=== PATIENT | female | born 1945 | race Caucasian/White ===

== ENCOUNTER 2021-07-24 16:49 | Inpatient (IN) | payer OTHER ==
[~2021-07-24] VITALS: Ht 165.1 cm; Wt 119.0 kg
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
[~2021-07-24 16:49] MED LIST: ALLOPURINOL 30300 M1 PO; B12INJ IM; BIOTIN1 MG PO; BIOTIN300 MCG PO; DEMADEX20 MG PO; K-DUR 20 MEQ T20 MEQ PO; MOBIC15 MG PO; TRAMADOL 50 MG50 MG PO; TUMS PO; VALACYCLOVIR1000 MG PO; VITAMIN D1000 UNI1 PO; ZOSYN 3.3753.375 GM IV
[2021-07-24 16:50] VITALS: BP 195/76
[2021-07-24 17:25] LABS: ABSOLUTE EOSINOPHILS 0.3 thou/uL (0.0-0.7); ABSOLUTE LYMPHOCYTES 1.2 thou/uL (0.8-5.3); ABSOLUTE MONOCYTES 0.7 thou/uL (0.0-1.2); ABSOLUTE NEUTROPHILS 5.6 thou/uL (1.6-8.1); BASOPHILS 0.2 %; EOSINOPHILS 3.2 %; HEMATOCRIT 35.1 % (37.0-47.0); HEMOGLOBIN 11.2 gm/dL (12.0-15.0); LYMPHOCYTES 15.8 %; MCH 27.2 pg (26.0-34.0); MCHC 32.1 g/dL (28.0-37.0); MCV 84.8 fL (80.0-100.0); MPV 7.4 fl. (7.2-11.1); NUCLEATED RBCS 0 /100WBC; PLATELET COUNT* 246 thou/uL (150-400); POLYS 71.8 %; RBC 4.14 mil/uL (4.20-5.00); RDW-CV 15.5 % (10.5-14.5); WBC 7.8 thou/uL (4.0-11.0)
[2021-07-24 17:42] LABS: CALCIUM 8.3 mg/dL (8.5-10.1); CREATININE 1.9 mg/dL (0.6-1.3); POTASSIUM 4.1 mmol/L (3.5-5.1)
[2021-07-24 17:46] LABS: ALBUMIN 2.6 g/dL (3.4-5.0); TOTAL BILIRUBIN 0.4 mg/dL (<0.1-1.0); TOTAL PROTEIN 7.2 g/dL (6.4-8.2)
[2021-07-24 18:45] LABS: URINE BILIRUBIN NEGATIVE (Negative); URINE BLOOD 3+ (Negative); URINE CLARITY CLEAR; URINE COLOR YELLOW; URINE GLUCOSE-RANDOM NEGATIVE (Negative); URINE KETONES NEGATIVE (Negative); URINE LEUKOCYTES 1+ (Negative); URINE NITRITE NEGATIVE (Negative); URINE PROTEIN NEGATIVE (Negative); URINE UROBILINOGEN 0.2 E.U./dl (0.2-1.0)
[2021-07-24 18:59] LABS: HYALINE CASTS 0-3 Few /LPF (None Seen); MUCUS None Seen strn/LPF (None Seen); SQUAMOUS >10 Many /LPF (0-3)
[2021-07-24 19:00] LABS: BACTERIA 1-9 Few /HPF (None Seen); CRYSTALS None Seen /LPF (None Seen); URINE RBC 3-10 Few /HPF (0-2); WBC CLUMPS Few (None Seen)
[2021-07-24 21:51] VITALS: BP 168/71
[2021-07-24 22:43] VITALS: BP 125/68
[2021-07-25 04:00] VITALS: BP 135/58
--- NOTE | 2021-07-25 05:41 | NUR ---
ASSUMED CARE OF PT AT APPROX 2215. PT A&OX3 (NOT TIME), VSS ON ROOM AIR, UP WITH ASSIST TO BSC. IV FLUIDS INFUSING ORDERED. PT SLEEPING WELL. WOUND CONSULT ORDERED FOR BLE WOUNDS.
[2021-07-25 08:00] VITALS: BP 153/78
--- NOTE | 2021-07-25 09:37 | NUR ---
CM ASSESSMENT: PT A&O, INDEPENDENT WITH ADL'S, AND ACTIVE. PT RESIDES AT HOME ALONE, BUT INFOMRS THAT HER GRANDDAUGHTER AND GRANDSON ARE SUPPORTIVE AND ASSIST WITH TRANSPORATION AND OTHER THINGS NEEDED. PT USES A CANE FOR MOBILITY. PT HAS PAST HX OF HH 'MANY YEARS AGO'. PT HAS 0 HX OF SNF. CM WILL REMAIN AVAILABLE TO ASSIST AND FOLLOW NEEDED.
--- NOTE | 2021-07-25 11:08 | EKG ---
[place] [address] ELECTROCARDIOGRAM REPORT Name: SHAY HOWARD Room: [address] ADM IN .R.#: [id number] Admission: 07/24/21 Attend Phys: Alfonso Ocasio Discharge: Date of : 41 Date of Service: 07/24/21 1654 Report #: [id number] THIS REPORT FOR: //name// [facility] ED Test Date: 2021-07-24 Test Time: 16:54:43 Pat Name: SHAY HOWARD Department: Room: [facility] Gender: F Fnp: GIANA : 1945 Requested By: Karthik Rodríguez Order Number: [id number] MD: Selvin Arceo Measurements Intervals [place] Rate: 56 P: 15 ME: 226 QRS: -12 QRSD: 94 T: -2 QT: 469 QTc: 453 Interpretive Statements Sinus rhythm Prolonged ME interval LVH by voltage Inferior infarct, old No previous ECG available for comparison Electronically Signed On 07-25-2021 11:08:32 CDT by Selvin Arceo [email or web address] <ELECTRONICALLY SIGNED> By: Selvin Arceo MD, FACC 07/25/21 1108 1654 1654 Selvin Arceo MD, FAC /EPI
--- NOTE | 2021-07-25 12:24 | NUR ---
Nutrition: Pt admitted with weakness. She said she couldn't get herself at home and had to use [employer]. I saw her today for high BMI. Wt: 262#. Albumin 2.6. She stated she "accepted the fact that I'm fat, and I deserve my goodies b/c I'm old." Not interested in nutrition educ. I did give her a menu. Regular diet. She said her appetite is good. We discussed the importance of keeping her strength up, chair exercises to maintain LBM - pt in agreement to this at home. Consider mild risk.
--- NOTE | 2021-07-25 14:24 | NUR ---
WOUND NURSE: PATIENT SEEN TO ADDRESS VENOUS STASIS ULCERS ON BLE. PATIENT ALSO HAS LYMPHEDEMA AND REPORTS SHE HAS PUMPS AT HOME BUT DOES NOT USE THEM ANYMORE. LLE WOUND MEASURES 7.0 X 18.5 X 0.1 CM AND WAS MEASURED A CLUSTER. PRESENTS WITH RED, NONGRANULATING TISSUE, WOUND BED IS MOIST. GIRTH MEASUREMENTS ARE FOREFOOT: 26.5, ANKLE: 32.0, CALF: 51.0 CM. LEGS ARE WARM TO TOUCH AND CONTAINS HEMOSIDERIN STAINING. THERE 3+ PITTING EDEMA BLE. RIGHT LOWER EXTREMITY MEASURES 4.5 X 10.5 X 0.1 CM. AN INFERIOR WOUND MEASURES 1.0 X 1.5 0.1 CM. BOTH LEGS PRESENT IN REYNA SAME FASHION. GIRTH MEASUREMENTS ON THE RIGHT ARE FOREFOOT: 26.0, ANKLE: 32.0, CALF: 51.0. OBTAINED QUANTAFLO MAIKOL PRIOR TO APPLICATION OF COMPRESSION: RIGHT: 1.15; LEFT: 1.12. PATIENT INSTRUCTED ON MEASURES TO PROMOTE HEALING AND PREVENT COMPLICATING FACTORS. PATIENT STATES SHE UNDERSTANDS.
--- NOTE | 2021-07-25 14:48 | NUR ---
PATIENT TO HAVE VENOUS DOPPLER, WILL REMOVE WRAPS AND REAPPLY AFTER TEST.
--- NOTE | 2021-07-25 16:53 | NUR ---
WOUND NURSE: REPLACED 4 LAYER COMPRESSION WRAPS, PATIENT PROVIDED APPT WITH [facility] NEXT WEDNESDAY HERE AT [facility], APPT CARD GIVEN TO HER.
--- NOTE | 2021-07-25 17:10 | NUR ---
PATIENT RESTING IN BED WATCHING TV. VENOUS STASIS WOUNDS TO LOWER EXTREMITIES UNABLE TO ASSESS DUE TO DRESSINGS. DRESSING C/D/I. HEALING SCABS TO ABDOMEN AND LEFT BUTTOCK. IV TO RIGHT FOREARM SALINE LOCKED, PATENT. NO COMPLAINTS PAIN/DISCOMFORT. BED IN LOW/LOCKED POSITION. BED ALARM ON. CALL LIGHT WITHIN REACH. ALL QUESTIONS AND CONCERNS ADDRESSED.
[2021-07-25 17:59] VITALS: BP 171/83
[2021-07-25 20:00] VITALS: BP 186/84
[2021-07-26] VITALS: BP 142/49
[2021-07-26 04:55] LABS: HEMATOCRIT 32.8 % (37.0-47.0); HEMOGLOBIN 10.4 gm/dL (12.0-15.0); MCHC 31.7 g/dL (28.0-37.0); MCV 85.1 fL (80.0-100.0); MPV 7.7 fl. (7.2-11.1); RBC 3.85 mil/uL (4.20-5.00); RDW-CV 15.1 % (10.5-14.5); WBC 6.9 thou/uL (4.0-11.0)
--- NOTE | 2021-07-26 05:00 | NUR ---
ASSUMED PT CARE AT 1930. PT ALERT AND ORIENTED X4, POLITE AND COOPERATIVE WITH CARES. BED BATH GIVEN, SHAMPOO CAP APPLIED. TRAMADOL X1 PER PT REQUEST. DRESSINGS TO BLE C/D/I. PT INCONTINENT OF URINE X2. CALL LIGHT IN REACH, BED ALARM ON FOR SAFETY. HOURLY ROUNDING IN PROGRESS, WILL CONTINUE TO MONITOR.
[2021-07-26 05:07] LABS: ALBUMIN 2.1 g/dL (3.4-5.0); CALCIUM 8.2 mg/dL (8.5-10.1); CREATININE 1.9 mg/dL (0.6-1.3); MAGNESIUM 2.2 mg/dL (1.8-2.4); POTASSIUM 4.3 mmol/L (3.5-5.1); TOTAL BILIRUBIN 0.4 mg/dL (<0.1-1.0); TOTAL PROTEIN 6.7 g/dL (6.4-8.2)
[2021-07-26 08:00] VITALS: BP 167/83
[2021-07-26 17:25] VITALS: BP 139/65
[2021-07-26 19:55] VITALS: BP 178/70
[2021-07-27 00:31] VITALS: BP 160/76
[2021-07-27 04:15] VITALS: BP 163/71
--- NOTE | 2021-07-27 04:29 | NUR ---
PT DRESSING ON BLE C/D/I. RECEIVED ALL MEDS SCHEDULED. USING BSC WITH ASSISTANCE. DID NOT REPORT ANY PAIN OR NAUSEA THIS SHIFT. SHE WAS SLEEPING WELL ALL SHIFT WITHOUT ANY DECLINE IN FUNCTION. WILL CONTINUE TO MONITOR.
[2021-07-27 06:11] LABS: HEMATOCRIT 31.7 % (37.0-47.0); MCHC 31.7 g/dL (28.0-37.0); MCV 85.1 fL (80.0-100.0); MPV 7.7 fl. (7.2-11.1); RBC 3.73 mil/uL (4.20-5.00); RDW-CV 15.8 % (10.5-14.5); WBC 7.5 thou/uL (4.0-11.0)
[2021-07-27 06:31] LABS: CALCIUM 8.1 mg/dL (8.5-10.1); CREATININE 1.8 mg/dL (0.6-1.3); MAGNESIUM 2.1 mg/dL (1.8-2.4); POTASSIUM 4.1 mmol/L (3.5-5.1); TOTAL BILIRUBIN 0.4 mg/dL (<0.1-1.0); TOTAL PROTEIN 6.7 g/dL (6.4-8.2)
[2021-07-27 08:32] VITALS: BP 178/84
[2021-07-27 16:02] VITALS: BP 133/56
--- NOTE | 2021-07-27 17:48 | NUR ---
PATIENT RESTING IN BED. VENOUS STASIS TO LOWER EXTREMITIES. GOOD CAP REFILL TO LOWER EXTREMITIES. WOUNDS TO LOWER EXTREMITIES, UNABLE TO ASSESS DUE TO DRESSINGS. DRESSINGS C/D/I. IV TO RIGHT WRIST, SALINE LOCKED, PATENT. BED IN LOW/LOCKED POSITION. BED ALARM ON. CALL LIGTH WITHIN REACH. NO QUESTIONS OR CONCERNS VOICED.
[2021-07-27 21:19] VITALS: BP 166/80
[2021-07-28 08:00] VITALS: BP 153/72
--- NOTE | 2021-07-28 14:06 | NUR ---
WOUND NURSE: PATIENT SEEN TODAY FOR FOLLOW UP ASSESSMENT AND DRESSING CHANGE TO BLE. WOUNDS ARE BOTH SHALLOW AND WITH BEEFY RED TISSUE IN EACH WOUND BED. LEFT MEASURES 6.5 X 11.0 X 0.2 CM. THERE IS A MODERATE AMOUNT OF SEROUSANGUINOUS DRAINAGE ON THE OLD DRESSING. RIGHT MEASURES 5.0 X 9.0 X 0.2 CM. THIS WOUND ALSO HAS A MODERATE AMOUNT OF SEROUSANGUINOUS DRAINAGE. SKIN IS WRINKLES DUE TO THE DECREASE IN SWELLING. GIRTH MEASUREMENTS WERE TAKEN AND ARE FOLLOWS: LEFT/RIGHT RESPECTIVELY: FOREFOOT: 23.5 / 23.5; ANKLE: 27 / 26; CALF: 43.5 / 43 CM. BLE REMAIN PIGMENTED WITH HEMOSIDERIN STAINING. CLEANSED WITH SOAP AND WATER, RINSED, THEN PATTED DRY. APPLIED LOTION TO INTACT SKINI TOES TO KNEE. APPLIED XEROFORM GAUZE UNDER ABD'S, THEN WRAPPED WITH MEDLINE 4 LAYER COMPRESSION WRAP TOES TO KNEE. THIS WAS TOLERATED WELL BY THE PATIENT. REINSTRUCTED ON IMPORTANCE OF COMPRESSION TO CONTROL EDEMA AND TO PREVENT WOUNDING. SHE STATES SHE UNDERSTANDS. SHE ALSO HAS APPT IN [facility] LATER THIS WEEK IF SHE IS DISCHARED.
--- NOTE | 2021-07-28 15:05 | NUR ---
Case and plan of care reviewed with physician each weekday during patient's length of stay. Continue plan of care per physician orders. Continues on IV Rocephin and Doxy. UTI Bacterial /BLE chronic venous status ulcers, PT/OT eval and treat ordered. CM following for discharge planning needs, Anticipating ARU need
[2021-07-28 16:00] VITALS: BP 153/69
[2021-07-28 20:00] VITALS: BP 156/78
--- NOTE | 2021-07-29 04:30 | NUR ---
PATIENT SLEPT WELL DURING THIS SHIFT. PT ASSISTED WITH TURNS Q2H PER PROTOCAL. PT WITH SALINE LOCK IN RT FOREARM. PT DENIES PAIN/NAUSEA; PT ON ROOM AIR. PT INCONTINENT OF URINE FIRST HALF OF THE NIGHT. PUREWICK PUT IN PLACE. PT WITH COMPRESSION WRAPS ON LOWER EXTREMITIES. FREQUENTLY USED ITEMS AND CALL LIGHT WITHIN REACH. SIDERAILS UP X2 AND BED ALARM ON. WILL CONTINUE TO MONITOR.
[2021-07-29 08:05] VITALS: BP 166/59
[2021-07-29 15:33] VITALS: BP 11/64
--- NOTE | 2021-07-29 17:13 | NUR ---
PATIENT RESTING IN BED. PATIENT WAS UP TO CHAIR WITH THERAPY. PATIENT IS UP WITH ASSIST OF 1. PATIENT DENIES ANY PAIN. PATIENT HAS GOOD APPETITE. PATIENT IS INCONTINENT OF URINE, PURE WICK IN PLACE. PATIENT DENIES ANY NEEDS AT THIS TIME. CALL LIGHT WIHTIN REACH.
--- NOTE | 2021-07-30 04:56 | NUR ---
PATIENT SLEPT WELL DURING THIS SHIFT. PT WITH ANTIBIOTICS INFUSING PER DR ORDER. PT ON ROOM AIR AT THIS TIME. DENIES PAIN/NAUSEA. PT INCONTINENT OF URINE AND CHANGED FREQUENTLY. PT'S IV HURTING AND ORDER RECEIVED TO DC IV ANTIBIOTICS AND GIVE PO. FREQUENTLY USED ITEMS AND CALL LIGHT WITHIN REACH. SIDERAILS UPX2 AND BED ALARM ON. WILL CONTINUE TO MONITOR
[2021-07-30 08:02] VITALS: BP 135/63
[2021-07-30] MEDS ORDERED: KLOR-CON 10 ER10 MEQ PO (09:34)
[2021-07-30] MEDS ORDERED: LEVOFLOXACIN500 MG PO (09:34)
[2021-07-30] MEDS ORDERED: LASIX 40 MG TAB40 M1 PO (09:34)
--- NOTE | 2021-07-30 10:21 | NUR ---
frieda contacted pt's granddtr, hilario, to inquire about support post aru stay, hilario referred frieda to her cousin, janes, , "she makes all of the decision for my grandmother." frieda lft message for janes.
[2021-07-30 15:43] VITALS: BP 126/60
--- NOTE | 2021-07-30 18:39 | NUR ---
PATIENT RESTING IN BED. PATIENT IS UP WITH ASSIST OF 1 WITH GAIT BELT AND WALKER. PATIENT HAS BEEN USING BEDSIDE COMMODE TODAY. PATIENT WORKED WITH THERAPY. PATIENT DENIES ANY PAIN. PATIENT DENIES ANY NEEDS AT THIS TIME. CALL LIGHT WITHIN REACH.
[2021-07-30 20:00] VITALS: BP 133/68
[2021-07-30 23:57] VITALS: BP 138/74
--- NOTE | 2021-07-31 04:59 | NUR ---
ASSUMED CARES AT 1920. ALERT AND ORIENTED. PLEASANT BUT DEPRESSED. BECAME TEARFUL, UPSET AT WHY SHE WAS SO WEAK AND IN HOSPITAL. REASSURANCE GIVEN. UP WITH GAIT BELT AND WALKER. UP TO BS. DID HAVE URINARY INCONTINENCE OVERNIGHT WELL. DRSG TO BLE INTACT. DENIED ANY PAIN. SLEPT MOST OF THE NIGHT. CALL LIGHT IN REACH AND BED ALARM ON.
[2021-07-31 08:00] VITALS: BP 124/61
--- NOTE | 2021-07-31 09:48 | NUR ---
WOUND NURSE: PATIENT SEEN TO DRESSING AND COMPRESSION WRAP CHANGES TO BILATERAL LOWER EXTREMITIES. LESS EDEMA NOW, WOUNDS ARE SHALLOW, WITH SEROUSANGUINOUS DRAINAGE IN MODERATE AMOUNTS. NO PERIWOUND REDNESS, WARMTH, OR INDURATION. NO COMPLAINTS OF PAIN OR DISCOMFORT. PATIENT REINSTRUCTED ON MEASURES TO PROMOTE HEALING AND PREVENT COMPLICATIONS. PATIENT STATES SHE UNDERSTANDS.
--- NOTE | 2021-07-31 14:39 | NUR ---
Case Management Followup Documentation completed by Conchita Madden Case Management. Consultation with providers confirmed plan remains consistant to transfer pt to SNF. Referrals were previosuly faxed to [facility] and [facility]. This video games storywriter contacted SNF to request updates regarding referrals and is awaiting a response.
[2021-07-31 15:34] VITALS: BP 113/62
--- NOTE | 2021-07-31 16:58 | NUR ---
PATIENT RESTING IN BED. WOUNDS TO LOWER LEGS, UNABLE TO ASSESS DUE TO DRESSINGS. FOUR LAYER COMPRESSION WRAPS IN PLACE TO LOWER LEGS. NO IV ACCESS. PATIENT HAS STATED THAT, "I WISH GOD WOULD TAKE ME." "THERE HAS TO BE SOMETHING BETTER THEN THIS." REDIRECTED PATIENT WITH ENCOURAGEMENT THAT WHEN HER STRENGTH INCREASES SHE WILL FEEL BETTER. PATIENT STATED, "OK." BED IN LOW/LOCKED POSITION. BED ALARM ON. CALL LIGHT WITHIN REACH. NO QUESTIONS OR CONCERNS VOICED.
[2021-07-31 19:55] VITALS: BP 124/61
[2021-08-01 03:51] VITALS: BP 143/74
--- NOTE | 2021-08-01 04:48 | NUR ---
PATIENT HAS REMAINED ALERT AND ORIENTED X 4. ASSISTED WITH TURNS AND USE OF BEDPAN. VITAL SIGNS STABLE. MEDS PER ORDER. MILD HEADACHE AT HS WHICH HAS RESOLVED WITH TYLENOL. QUIET AND PRESENTS THAT SHE IS DEPRESSED. FALL PRECAUTIONS IN PLACE. CONTINUE TO MONITOR.
--- NOTE | 2021-08-01 07:15 | NUR ---
CHANGE OF SHIFT REPORT GIVEN PATIENT SEEN IN BED ASLEEP ASSUMED PATIENT CARE
[2021-08-01 08:00] VITALS: BP 197/78
--- NOTE | 2021-08-01 09:38 | NUR ---
PHONED, [facility] TO CHECK ON BED STATUS, ADMISSIONS CONTACT (VANESSA) WAS IN A MEETING, REQUESTED TO LEAVE A MESSAGE. [phone]
--- NOTE | 2021-08-01 09:42 | NUR ---
PHONED [facility] FOR BED STATUS [phone], LEFT A MESSAGE FOR "EDDIE" ADMISSION'S COORDINATOR.
--- NOTE | 2021-08-01 10:32 | NUR ---
F/U WITH PHONE CALL TO ADMISSION'S AT [facility]. 2ND MESSAGE LEFT AT THIS TIME.
--- NOTE | 2021-08-01 10:34 | NUR ---
2ND PHONE CALL TO ADMISSIONS AT [facility], NO ANSWER.
--- NOTE | 2021-08-01 12:54 | NUR ---
REFERRAL PACKET REFAXED TO [facility] AND [facility], AWAITING APPROVAL. CM TO CONTINUE TO FOLLOW FOR SAFE D/C PLANNING.
--- NOTE | 2021-08-01 14:14 | NUR ---
REFERRAL PACKET FAXED TO [facility]. AWAITING APPROVAL. CM TO CONTINUE TO FOLLOW FOR SAFE D/C PLANNING.
--- NOTE | 2021-08-01 15:17 | NUR ---
[facility] ACCEPTED PT. [facility] SUUBMITTING FOR AUTH 08/01/21 CM TO CONTINUE TO FOLLOW FOR SAFE D/C PLANNING.
[2021-08-01 16:30] VITALS: BP 139/74
--- NOTE | 2021-08-01 16:30 | NUR ---
[facility] faxed referral info for SNU. FAxed to [facility] fx [phone] ph [phone]. [facility] accepted and requested auth. Will call this evening as soon as received, [facility] can complete auth today.
[2021-08-01 19:35] VITALS: BP 157/74
--- NOTE | 2021-08-01 19:35 | NUR ---
RESTING QUIETLY IN BED AND WATCHING TV. CALL LIGHT WITHIN REACH. DENIES DISCOMFORT. LOWER EXTREMITIES DRESSINGS DRY/INTACT.
--- NOTE | 2021-08-02 06:05 | NUR ---
RESTED ON/OFF. TYLENOL GIVEN AT 0244 FOR COMPLAINT OF A HEADACHE WITH RELIEF. HOURLY ROUNDING IN PROGRESS.
[2021-08-02 08:30] VITALS: BP 164/78
[2021-08-02 15:48] VITALS: BP 158/72
--- NOTE | 2021-08-02 19:18 | NUR ---
Provider aware of no PIV, provider verbalized okay to d/c PIV at this time. No further indication at this time.
[2021-08-02 19:22] VITALS: BP 95/59
[2021-08-03 00:23] VITALS: BP 134/67
--- NOTE | 2021-08-03 03:46 | NUR ---
PT ALERT, ORIENTED TO SELF & PLACE, VSS ON ROOM AIR, UP WITH ASSIST TO BSC, REPOSITIONED Q2H. NO IV ACCESS. NO CO PAIN OR DISCOMFORT. PT SLEEPING WELL, WILL CONTINUE TO MONITOR.
[2021-08-03 09:00] VITALS: BP 139/66
[2021-08-03 19:28] VITALS: BP 128/67
--- NOTE | 2021-08-04 04:07 | NUR ---
PT A&OX2, FORGETFUL, PLEASANT. VSS ON ROOM AIR, UP WITH ASSIST TO BSC, REPOSITIONED Q2H, NO IV ACCESS. NO CO PAIN OR DISCOMFORT. PT SLEEPING WELL, WILL CONTINUE TO MONITOR.
[2021-08-04 08:10] VITALS: BP 137/70
[2021-08-04 12:45] LABS: ABSOLUTE BASOPHILS 0.1 thou/uL (0.0-0.2); ABSOLUTE LYMPHOCYTES 1.5 thou/uL (0.8-5.3); HEMOGLOBIN 11.9 gm/dL (12.0-15.0); RDW-CV 15.7 % (10.5-14.5); WBC 6.8 thou/uL (4.0-11.0)
[2021-08-04 12:48] LABS: ABSOLUTE EOSINOPHILS 0.4 thou/uL (0.0-0.7); ABSOLUTE MONOCYTES 0.7 thou/uL (0.0-1.2); ABSOLUTE NEUTROPHILS 4.2 thou/uL (1.6-8.1); EOSINOPHILS 5.3 %; HEMATOCRIT 37.1 % (37.0-47.0); LYMPHOCYTES 21.7 %; MCH 26.9 pg (26.0-34.0); MCV 84.1 fL (80.0-100.0); MONOCYTES 9.6 %; NUCLEATED RBCS 0 /100WBC; PLATELET COUNT* 265 thou/uL (150-400); POLYS 62.4 %; RBC 4.41 mil/uL (4.20-5.00)
[2021-08-04 12:49] LABS: CALCIUM 8.8 mg/dL (8.5-10.1); CREATININE 2.6 mg/dL (0.6-1.3); POTASSIUM 3.7 mmol/L (3.5-5.1)
[2021-08-04 12:53] LABS: ALBUMIN 2.7 g/dL (3.4-5.0); TOTAL BILIRUBIN 0.3 mg/dL (<0.1-1.0); TOTAL PROTEIN 7.7 g/dL (6.4-8.2)
--- NOTE | 2021-08-04 14:50 | NUR ---
PT TO DISCHARGE TO [facility] [place]. REPORT CALLED TO LATONYA. COPIES OF PAPERWORK TO BE SENT WITH PT TO BE GIVEN TO TRANSPORTOR. NO IV ACCESS. PT IN AGREEMENT TO GO. MESSAGE LEFT FOT PT'S SON, SIL, TO DISCHARGE PLACE AND TIME.
--- NOTE | 2021-08-04 16:22 | NUR ---
Case Management Followup CM communicated with [facility] and [facility] to arrange pt's discharge to [facility]. CM informed pt and authorized contact (granddaughter - Hyadee Torres - [phone]) of pt's discharge scheduled for 08/04/21. Pt to be transported by [facility] ([phone]).
--- NOTE | 2021-08-04 16:34 | NUR ---
PT DISCHARGED TO [facility]. PAPERWORK GIVEN TO TRANSPOTATION STAFF. ALL BELONGINGS SENT WITH PT. GRAND DAUGHTER STANLEY NOTIFIED OF PT DISCHARGE AT [phone].
== END 2021-08-04 16:36 | DRG 602 ==
LOC: M.ERS 16:49 → M.3W 18:58 → M.TBA-ER 18:58 → M.3W 23:37
PROVIDERS: Emergency Medicine; Internal Medicine; ADMIT Internal Medicine; ATTEND Internal Medicine
DX: L03.116 Cellulitis of left lower limb (principal); N17.0 Acute kidney failure with tubular necrosis; N39.0 Urinary tract infection, site not specified; Z68.41 Body mass index [BMI] 40.0-44.9, adult; I13.0 Hypertensive heart and chronic kidney disease with heart failure and stage 1 through stage 4 chronic kidney disease, or unspecified chronic kidney disease; L03.115 Cellulitis of right lower limb; I50.9 Heart failure, unspecified; E11.22 Type 2 diabetes mellitus with diabetic chronic kidney disease; B96.89 Other specified bacterial agents as the cause of diseases classified elsewhere; F03.90 Unspecified dementia, unspecified severity, without behavioral disturbance, psychotic disturbance, mood disturbance, and anxiety; N18.30 Chronic kidney disease, stage 3 unspecified; R53.81 Other malaise; I87.8 Other specified disorders of veins; E66.9 Obesity, unspecified; Z60.2 Problems related to living alone; M19.90 Unspecified osteoarthritis, unspecified site; E11.42 Type 2 diabetes mellitus with diabetic polyneuropathy; M10.9 Gout, unspecified; Z20.822 Contact with and (suspected) exposure to COVID-19; Z87.442 Personal history of urinary calculi; Z90.710 Acquired absence of both cervix and uterus; Z79.899 Other long term (current) drug therapy